=== PATIENT | female | born 1995 | race Two or more races ===

== ENCOUNTER 2025-04-13 09:31 | Emergency (ER) | payer OTHER ==
[~2025-04-13] VITALS: Ht 154.9 cm; Wt 81.6 kg
[~2025-04-13 09:31] MED LIST: PRENATAL CAPSU1 EACH PO
[2025-04-13 11:38] LABS: URINE APPEARANCE Cloudy; URINE BILIRRUBIN Negative (NEGATIVE); URINE BLOOD Moderate; URINE COLOR Yellow; URINE GLUCOSE Negative (NEGATIVE); URINE KETONE Negative (NEGATIVE); URINE LEUKOCYTE Small; URINE NITRATE Negative; URINE PROTEIN Negative (NEGATIVE); URINE UROBILINOGEN 0.2 E.U./dl
[2025-04-13 11:43] LABS: URINE BACTERIA 2375.7 uL (0.0-1933); URINE EPITHELIAL CELLS 59.3 uL (0.0-38.8); URINE RBC 3.9 uL (0.0-20.8); URINE WBC 55.5 uL (0.0-23.2)
[2025-04-13 11:43] LABS: HEMATOCRIT 32.6 % (34.1-44.9); MEAN CORPUSCULAR HEMOGLOBIN 23.9 pg (25.6-32.2); RED BLOOD COUNT 4.27 M/uL (3.93-5.22)
[2025-04-13 11:44] LABS: BASO % 0.5 % (0.1-1.2); EOS % 0.9 % (0.7-7.0); LYMPH % 32.5 % (19.3-53.1); MONO # 0.75 (0.24-0.82); MONO % 6.8 % (4.7-12.5); NEUT # 6.55 (1.56-6.13); PLATELET COUNT 432 K/uL (163-369); RED CELL DISTRIBUTION WIDTH 16.8 % (11.6-14.4)
[2025-04-13 11:45] LABS: HEMOGLOBIN 10.2 g/dL (11.2-15.7)
[2025-04-13 11:54] LABS: URINE CAST 0.14 uL (0.0-1.40)
[2025-04-13 12:04] LABS: INR 0.99; PARTIAL THROMBOPLASTIN TIME 23.6 SECONDS (22.0-34.0); PROTHROMBIN TIME 10.8 SECONDS (9.0-11.5)
[2025-04-13 13:32] LABS: ALBUMIN 3.9 gm/dL (3.4-5.0); ALKALINE PHOSPHATASE 131 U/L (50-136); ALT/SGPT 33 U/L (12-78); ANION GAP 9 (10.0-20.0); AST/SGOT 20 U/L (15-37); BLOOD UREA NITROGEN 10 mg/dL (7-18); BUN CREA RATIO 19 (7.0-25.0); CARBON DIOXIDE 29 mEq/L (21-32); CHLORIDE 107 mmol/L (98-107); CREATININE SERUM 0.54 mg/dL (0.55-1.02); GFR 130.83; GLUCOSE FASTING 102 mg/dL (65-100); OSMOLALITY SERUM 280 MOSM/KG (275-295); POTASSIUM 3.61 mEq/L (3.5-5.1); SODIUM 141 mmol/L (136-145); TOTAL PROTEIN 8.9 gm/dL (6.4-8.2)
[2025-04-13 13:35] LABS: HCG QUANTITATIVE < 1 mUI/mL (1-3)
[2025-04-13 14:29] LABS: HEMATOCRIT 31.7 % (34.1-44.9); MEAN CORPUSCULAR HEMOGLOBIN 24.2 pg (25.6-32.2); RED BLOOD COUNT 4.13 M/uL (3.93-5.22); RED CELL DISTRIBUTION WIDTH 16.6 % (11.6-14.4)
[2025-04-13 14:30] LABS: BASO % 0.4 % (0.1-1.2); EOS # 0.09 (0.04-0.54); EOS % 0.7 % (0.7-7.0); LYMPH # 3.62 (1.18-3.74); LYMPH % 29.1 % (19.3-53.1); MONO # 0.65 (0.24-0.82); MONO % 5.2 % (4.7-12.5); NEUT # 7.97 (1.56-6.13); NEUT % 64.3 % (34.0-71.1); PLATELET COUNT 486 K/uL (163-369)
[2025-04-13] MEDS ORDERED: NORFLEX100MG PO (14:38)
== END 2025-04-13 14:50 | disposition home or self-care (01) ==
LOC: ER 09:38
PROVIDERS: General Practice
DX: R10.2 Pelvic and perineal pain (principal); N93.9 Abnormal uterine and vaginal bleeding, unspecified; Z91.018 Allergy to other foods; Z88.8 Allergy status to other drugs, medicaments and biological substances